=== PATIENT | female | born 1970 | race Caucasian/White ===

== ENCOUNTER 2023-08-25 12:51 | Outpatient (RCR) | payer BC, SELFPAY ==
[2023-08-25 13:00] VITALS: BP 156/80
[2023-08-25] MEDS: TYSABRI 115 MG IV (13:10)
[2023-08-25] MEDS: NSS 250 IV (13:10)
== END 2023-08-26 08:56 | disposition home or self-care (01) ==
LOC: OID 12:51
PROVIDERS: ATTENDING PHYSICIAN Psychiatry & Neurology Neurology; FAMILY PHYSICIAN Nurse Practitioner Family
DX: G35 Multiple sclerosis (principal)
CPT/HCPCS: 96365; J2323

== ENCOUNTER → 2023-09-06 14:29 | Outpatient (REF) | payer BC, SELFPAY ==
[2023-09-06 14:58] LABS: % Basophils 0.9 % (0-2); % Eosinophils 2.6 % (0-6); % Immature Granulocytes 0.7 % (0-0.5); % Lymphocytes 35.7 % (20.5-51.1); % Neutrophils 54.1 % (42.2-75.2); Absolute Basophils 0.1 10^3/uL (0-0.2); Absolute Eosinophils 0.3 10^3/uL (0-0.7); Absolute Immature Granulocytes 0.1 10^3/uL (0-0.05); Absolute Lymphocytes 4.3 10^3/uL (1.2-3.4); Absolute Monocytes 0.7 10^3/uL (0.1-0.6); Absolute Neutrophils 6.5 10^3/uL (1.4-6.5); Hemoglobin 13.6 g/dL (12.0-16.0); Mean Corp Hgb Conc. 34.9 g/dL (33.0-37.0); Mean Corpuscular Hgb 30.8 pg (27.0-31.0); Mean Corpuscular Volume 88.2 fL (81.0-99.0); Mean Platelet Volume 9.1 fL (7.4-10.4); Nucleated Red Blood Cells % 0.7 %; Platelet Count 342 10^3/uL (130-400); Red Blood Cell Count 4.42 10^6/uL (4.20-5.40); Red Cell Dist. Width 12.7 % (11.5-14.5); White Blood Cell Count 11.9 10^3/uL (4.8-10.8)
[2023-09-06 15:18] LABS: ALT (SGPT) 20 U/L (0-35); AST (SGOT) 24 U/L (14-36); Albumin 4.5 g/dl (3.5-5.0); Alkaline Phosphatase 95 U/L (38-126); Blood Urea Nitrogen 14 mg/dl (7-17); Calcium 9.7 mg/dl (8.4-10.2); Carbon Dioxide 27 mmol/L (22-30); Chloride 103 mmol/L (98-107); Glucose 113 mg/dl (70-99); Sodium 137 mmol/L (135-145); Total Bilirubin 0.6 mg/dl (0.2-1.3); eGFR > 60.00
== END ==
LOC: REG 14:29
PROVIDERS: ATTENDING PHYSICIAN Psychiatry & Neurology Neurology; FAMILY PHYSICIAN Nurse Practitioner Family
DX: G35 Multiple sclerosis (principal)
CPT/HCPCS: 36415; 80053; 85025

== ENCOUNTER 2023-10-11 12:48 | Outpatient (RCR) | payer BC, SELFPAY ==
[2023-10-11 13:00] VITALS: BP 143/62
[2023-10-11] MEDS: NSS 250 IV (13:14)
[2023-10-11] MEDS: TYSABRI 115 MG IV (13:14)
[2023-10-11 13:20] VITALS: BP 134/63
[2023-10-11 13:30] VITALS: BP 129/61
[2023-10-11 14:00] VITALS: BP 121/61
[2023-10-11 14:25] VITALS: BP 126/58
== END 2023-10-11 15:11 | disposition home or self-care (01) ==
LOC: OID 12:48
PROVIDERS: ATTENDING PHYSICIAN Psychiatry & Neurology Neurology; FAMILY PHYSICIAN Nurse Practitioner Family
DX: G35 Multiple sclerosis (principal)
CPT/HCPCS: 96365; J2323

== ENCOUNTER 2023-11-22 12:47 | Outpatient (RCR) | payer BC, SELFPAY ==
[2023-11-22] MEDS: TYSABRI 115 MG IV (13:27)
[2023-11-22] MEDS: NSS 250 IV (13:27)
[2023-11-22 13:36] VITALS: BP 130/64
== END 2023-11-23 09:18 | disposition home or self-care (01) ==
LOC: OID 12:47
PROVIDERS: ATTENDING PHYSICIAN Psychiatry & Neurology Neurology; FAMILY PHYSICIAN Nurse Practitioner Family
DX: G35 Multiple sclerosis (principal)
CPT/HCPCS: 96365; J2323

== ENCOUNTER → 2023-12-27 15:19 | Outpatient (REF) | payer BC, SELFPAY ==
[2023-12-27 16:36] LABS: % Basophils 1.2 % (0-2); % Eosinophils 3.4 % (0-6); % Immature Granulocytes 0.4 % (0-0.5); % Monocytes 6.7 % (1.7-9.3); % Neutrophils 53.3 % (42.2-75.2); Absolute Basophils 0.1 10^3/uL (0-0.2); Absolute Eosinophils 0.3 10^3/uL (0-0.7); Absolute Lymphocytes 3.3 10^3/uL (1.2-3.4); Absolute Monocytes 0.6 10^3/uL (0.1-0.6); Absolute Neutrophils 5.1 10^3/uL (1.4-6.5); Hematocrit 37.3 % (37.0-47.0); Hemoglobin 12.7 g/dL (12.0-16.0); Mean Corpuscular Hgb 31.2 pg (27.0-31.0); Mean Corpuscular Volume 91.6 fL (81.0-99.0); Mean Platelet Volume 9.9 fL (7.4-10.4); Nucleated Red Blood Cells % 0.9 %; Platelet Count 294 10^3/uL (130-400); Red Blood Cell Count 4.07 10^6/uL (4.20-5.40); Red Cell Dist. Width 13.2 % (11.5-14.5); White Blood Cell Count 9.5 10^3/uL (4.8-10.8)
[2023-12-27 17:07] LABS: ALT (SGPT) 18 U/L (0-35); AST (SGOT) 25 U/L (14-36); Albumin 4.2 g/dl (3.5-5.0); Alkaline Phosphatase 88 U/L (38-126); Blood Urea Nitrogen 13 mg/dl (7-17); Calcium 9.6 mg/dl (8.4-10.2); Carbon Dioxide 26 mmol/L (22-30); Chloride 104 mmol/L (98-107); Glucose 93 mg/dl (70-99); Potassium 4.3 mmol/L (3.5-5.1); Sodium 139 mmol/L (135-145); Total Bilirubin 0.5 mg/dl (0.2-1.3); Total Protein 6.3 g/dl (6.3-8.2); eGFR > 60.00
== END ==
LOC: REG 15:19
PROVIDERS: ATTENDING PHYSICIAN Psychiatry & Neurology Neurology; FAMILY PHYSICIAN Nurse Practitioner Family
DX: G35 Multiple sclerosis (principal)
CPT/HCPCS: 36415; 80053; 83516; 85025

== ENCOUNTER 2024-01-03 12:50 | Outpatient (RCR) | payer BC, SELFPAY ==
[2024-01-03 13:02] VITALS: BP 113/57
[2024-01-03] MEDS: TYSABRI 115 MG IV (13:15)
[2024-01-03] MEDS: NSS 250 IV (13:15)
[2024-01-03 14:50] VITALS: BP 116/61
== END 2024-01-04 09:54 | disposition home or self-care (01) ==
LOC: OID 12:50
PROVIDERS: ATTENDING PHYSICIAN Psychiatry & Neurology Neurology; FAMILY PHYSICIAN Nurse Practitioner Family
DX: G35 Multiple sclerosis (principal)
CPT/HCPCS: 96361; 96365; J2323

== ENCOUNTER → 2024-01-21 15:57 | Outpatient (REF) | payer BC, SELFPAY | LOC: RAD 15:57 | PROVIDERS: ATTENDING PHYSICIAN Obstetrics & Gynecology; FAMILY PHYSICIAN Nurse Practitioner Family | DX: N39.46 Mixed incontinence (principal); R39.15 Urgency of urination | CPT/HCPCS: 76770 ==

== ENCOUNTER → 2024-02-03 06:45 | Outpatient (REF) | payer BC, SELFPAY ==
[2024-02-03 07:42] LABS: % Immature Granulocytes 0.3 % (0-0.5); % Lymphocytes 36.5 % (20.5-51.1); % Monocytes 8.2 % (1.7-9.3); Absolute Basophils 0.1 10^3/uL (0-0.2); Absolute Eosinophils 0.3 10^3/uL (0-0.7); Absolute Lymphocytes 3.5 10^3/uL (1.2-3.4); Absolute Monocytes 0.8 10^3/uL (0.1-0.6); Absolute Neutrophils 4.8 10^3/uL (1.4-6.5); Hematocrit 36.8 % (37.0-47.0); Hemoglobin 12.9 g/dL (12.0-16.0); Mean Corp Hgb Conc. 35.1 g/dL (33.0-37.0); Mean Corpuscular Hgb 31.4 pg (27.0-31.0); Mean Corpuscular Volume 89.5 fL (81.0-99.0); Mean Platelet Volume 9.4 fL (7.4-10.4); Nucleated Red Blood Cells % 1.2 %; Platelet Count 243 10^3/uL (130-400); Red Blood Cell Count 4.11 10^6/uL (4.20-5.40); Red Cell Dist. Width 13.2 % (11.5-14.5); White Blood Cell Count 9.5 10^3/uL (4.8-10.8)
[2024-02-03 08:27] LABS: ALT (SGPT) 17 U/L (0-35); AST (SGOT) 22 U/L (14-36); Albumin 4.3 g/dl (3.5-5.0); Alkaline Phosphatase 86 U/L (38-126); Blood Urea Nitrogen 17 mg/dl (7-17); Calcium 9.7 mg/dl (8.4-10.2); Carbon Dioxide 28 mmol/L (22-30); Chloride 105 mmol/L (98-107); Glucose 89 mg/dl (70-99); HDL Cholesterol 41 mg/dl; LDL Cholesterol, Calculated 62 mg/dl; Potassium 4.3 mmol/L (3.5-5.1); Sodium 139 mmol/L (135-145); Total Bilirubin 0.6 mg/dl (0.2-1.3); Total Cholesterol 153 mg/dl (50-199); Total Protein 6.3 g/dl (6.3-8.2); Triglyceride 254 mg/dl (10-149); Very Low Density Lipoprotein 50 mg/dl (0-30); eGFR > 60.00
== END ==
LOC: REG 06:45
PROVIDERS: ATTENDING PHYSICIAN Nurse Practitioner Family
DX: Z00.00 Encounter for general adult medical examination without abnormal findings (principal)
CPT/HCPCS: 36415; 80053; 80061; 84443; 85025

== ENCOUNTER 2024-02-14 12:57 | Outpatient (RCR) | payer BC, SELFPAY ==
[2024-02-14 13:00] VITALS: BP 144/72
[2024-02-14] MEDS: NSS 250 IV (13:22)
[2024-02-14] MEDS: TYSABRI 115 MG IV (13:22)
[2024-02-14 14:47] VITALS: BP 136/71
== END 2024-02-16 23:59 | disposition home or self-care (01) ==
LOC: OID 12:57
PROVIDERS: ATTENDING PHYSICIAN Psychiatry & Neurology Neurology; FAMILY PHYSICIAN Nurse Practitioner Family
DX: G35 Multiple sclerosis (principal)
CPT/HCPCS: 96361; 96365; J2323

== ENCOUNTER 2024-03-27 12:55 | Outpatient (RCR) | payer BC, SELFPAY ==
[2024-03-27 13:05] VITALS: BP 126/56
[2024-03-27] MEDS: TYSABRI 115 MG IV (13:15)
[2024-03-27] MEDS: NSS 250 IV (13:16)
[2024-03-27 14:20] VITALS: BP 113/59
== END 2024-03-28 09:53 | disposition home or self-care (01) ==
LOC: OID 12:55
PROVIDERS: ATTENDING PHYSICIAN Psychiatry & Neurology Neurology; FAMILY PHYSICIAN Nurse Practitioner Family
DX: G35 Multiple sclerosis (principal)
CPT/HCPCS: 96365; J2323

== ENCOUNTER 2024-05-08 12:47 | Outpatient (RCR) | payer BC, SELFPAY ==
[2024-05-08] MEDS: NSS 250 IV (13:32)
[2024-05-08] MEDS: TYSABRI 115 MG IV (13:33)
[2024-05-08 13:39] VITALS: BP 128/68
== END 2024-05-18 23:59 | disposition home or self-care (01) ==
LOC: OID 12:47
PROVIDERS: ATTENDING PHYSICIAN Psychiatry & Neurology Neurology; FAMILY PHYSICIAN Nurse Practitioner Family
DX: G35 Multiple sclerosis (principal); H46.9 Unspecified optic neuritis
CPT/HCPCS: 96361; 96365; J2323

== ENCOUNTER → 2024-05-22 16:00 | Outpatient (REF) | payer BC, SELFPAY | LOC: WDC 16:00 | PROVIDERS: ATTENDING PHYSICIAN Nurse Practitioner Family | DX: Z12.39 Encounter for other screening for malignant neoplasm of breast (principal); Z12.31 Encounter for screening mammogram for malignant neoplasm of breast | CPT/HCPCS: 77063; 77067 ==

== ENCOUNTER → 2024-06-05 17:30 | Outpatient (REF) | payer BC, SELFPAY | LOC: MRI 3T 17:30 | PROVIDERS: ATTENDING PHYSICIAN Psychiatry & Neurology Neurology; FAMILY PHYSICIAN Nurse Practitioner Family | DX: G35 Multiple sclerosis (principal) | CPT/HCPCS: 70553; 72156; A9575 ==

== ENCOUNTER → 2024-06-07 17:23 | Outpatient (REF) | payer BC, SELFPAY | LOC: MRI 3T 17:23 | PROVIDERS: ATTENDING PHYSICIAN Psychiatry & Neurology Neurology; FAMILY PHYSICIAN Nurse Practitioner Family | DX: G35 Multiple sclerosis (principal); H46.9 Unspecified optic neuritis | CPT/HCPCS: 72157; A9575 ==

== ENCOUNTER → 2024-06-16 11:15 | Outpatient (REF) | payer BC, SELFPAY | LOC: REG 11:15 | PROVIDERS: ATTENDING PHYSICIAN Nurse Practitioner Family | DX: M79.605 Pain in left leg (principal) | CPT/HCPCS: 73564 ==

== ENCOUNTER 2024-06-19 12:49 | Outpatient (RCR) | payer BC, SELFPAY ==
[2024-06-19 13:10] VITALS: BP 126/84
[2024-06-19] MEDS: TYSABRI 115 MG IV (13:19)
[2024-06-19] MEDS: NSS 250 IV (13:19)
[2024-06-19 14:46] VITALS: BP 122/61
== END 2024-06-20 09:14 | disposition home or self-care (01) ==
LOC: OID 12:49
PROVIDERS: ATTENDING PHYSICIAN Psychiatry & Neurology Neurology; FAMILY PHYSICIAN Nurse Practitioner Family
DX: G35 Multiple sclerosis (principal)
CPT/HCPCS: 96365; J2323

== ENCOUNTER 2024-07-31 12:56 | Outpatient (RCR) | payer BC, SELFPAY ==
[2024-07-31] MEDS: TYSABRI 115 MG IV (13:17)
[2024-07-31] MEDS: NSS 250 IV (13:18)
[2024-07-31 13:40] VITALS: BP 140/75
[2024-07-31 15:20] VITALS: BP 132/65
== END 2024-08-01 11:42 | disposition home or self-care (01) ==
LOC: OID 12:56
PROVIDERS: ATTENDING PHYSICIAN Psychiatry & Neurology Neurology; FAMILY PHYSICIAN Nurse Practitioner Family
DX: G35 Multiple sclerosis (principal); H46.9 Unspecified optic neuritis
CPT/HCPCS: 96361; 96365; J2323

== ENCOUNTER → 2024-08-08 10:41 | Outpatient (REF) | payer BC, SELFPAY | LOC: PAVMRI 10:41 | PROVIDERS: ATTENDING PHYSICIAN Orthopaedic Surgery; FAMILY PHYSICIAN Nurse Practitioner Family | DX: M25.562 Pain in left knee (principal) | CPT/HCPCS: 73721 ==

== ENCOUNTER → 2024-08-16 13:58 | Outpatient (REF) | payer BC, SELFPAY ==
[2024-08-16 16:36] LABS: Urine Albumin Negative (Neg - Trace); Urine Bilirubin Negative (Negative); Urine Character Clear (Clear); Urine Color Yellow; Urine Glucose Negative (Negative); Urine Ketone Negative (Negative); Urine Leukocyte 2+ (Negative); Urine Nitrite Negative (Negative); Urine Occult Blood Negative (Negative); Urine Specific Gravity 1.015 (<1.030); Urine Urobilinogen Negative (Neg - 1+)
[2024-08-16 16:47] LABS: Urine Bacteria Few (Negative); Urine Mucus Moderate; Urine Red Blood Cell 0-2 /HPF (0-2)
== END ==
LOC: CLAB 13:58
PROVIDERS: ATTENDING PHYSICIAN Obstetrics & Gynecology
DX: R39.9 Unspecified symptoms and signs involving the genitourinary system (principal)
CPT/HCPCS: 81003; 81015; 87086

== ENCOUNTER 2024-09-11 12:49 | Outpatient (RCR) | payer BC, SELFPAY ==
[2024-09-11] MEDS: NSS 250 IV (13:21)
[2024-09-11] MEDS: TYSABRI 115 MG IV (13:21)
[2024-09-11 13:25] VITALS: BP 136/61
[2024-09-11 15:20] VITALS: BP 120/61
== END 2024-09-12 13:36 | disposition home or self-care (01) ==
LOC: OID 12:49
PROVIDERS: ATTENDING PHYSICIAN Psychiatry & Neurology Neurology; FAMILY PHYSICIAN Nurse Practitioner Family
DX: G35 Multiple sclerosis (principal)
CPT/HCPCS: 96361; 96365; J2323

== ENCOUNTER 2024-10-10 06:09 | Outpatient (RCR) | payer BC, SELFPAY | END 2024-10-10 23:59 | disposition home or self-care (01) | LOC: RPT 06:09 | PROVIDERS: ATTENDING PHYSICIAN Student in an Organized Health Care Education/Training Program; FAMILY PHYSICIAN Nurse Practitioner Family | DX: M17.12 Unilateral primary osteoarthritis, left knee (principal); S83.207D Unspecified tear of unspecified meniscus, current injury, left knee, subsequent encounter; Z73.6 Limitation of activities due to disability; W18.39XD Other fall on same level, subsequent encounter; G35 Multiple sclerosis; R26.89 Other abnormalities of gait and mobility | CPT/HCPCS: 97110; 97162 ==

== ENCOUNTER 2024-10-23 12:50 | Outpatient (RCR) | payer BC, SELFPAY ==
[2024-10-23 13:13] VITALS: BP 131/77
[2024-10-23] MEDS: NSS 250 IV (13:22)
[2024-10-23] MEDS: TYSABRI 115 MG IV (13:26)
[2024-10-23 14:36] VITALS: BP 119/68
== END 2024-10-24 09:44 | disposition home or self-care (01) ==
LOC: OID 12:50
PROVIDERS: ATTENDING PHYSICIAN Psychiatry & Neurology Neurology; FAMILY PHYSICIAN Nurse Practitioner Family
DX: G35 Multiple sclerosis (principal)
CPT/HCPCS: 96361; 96365; J2323

== ENCOUNTER 2024-11-07 16:30 | Outpatient (RCR) | payer BC, SELFPAY | END 2024-11-07 23:59 | disposition home or self-care (01) | LOC: RPT 16:30 | PROVIDERS: ATTENDING PHYSICIAN Student in an Organized Health Care Education/Training Program; FAMILY PHYSICIAN Nurse Practitioner Family | DX: M17.12 Unilateral primary osteoarthritis, left knee (principal); S83.207D Unspecified tear of unspecified meniscus, current injury, left knee, subsequent encounter; Z73.6 Limitation of activities due to disability; W18.39XD Other fall on same level, subsequent encounter; G35 Multiple sclerosis; R26.89 Other abnormalities of gait and mobility | CPT/HCPCS: 97110; 97140 ==

== ENCOUNTER → 2024-11-24 18:28 | Outpatient (REF) | payer BC, SELFPAY | LOC: MRI 3T 18:28 | PROVIDERS: ATTENDING PHYSICIAN Nurse Practitioner Adult Health; FAMILY PHYSICIAN Nurse Practitioner Family | DX: G35 Multiple sclerosis (principal); H46.9 Unspecified optic neuritis | CPT/HCPCS: 70553; A9575 ==

== ENCOUNTER 2024-12-04 12:49 | Outpatient (RCR) | payer BC, SELFPAY ==
[2024-12-04] MEDS: TYSABRI 115 MG IV (13:27)
[2024-12-04] MEDS: NSS 250 IV (13:27)
[2024-12-04 13:35] VITALS: BP 141/76
== END 2024-12-05 08:52 | disposition home or self-care (01) ==
LOC: OID 12:49
PROVIDERS: ATTENDING PHYSICIAN Psychiatry & Neurology Neurology; FAMILY PHYSICIAN Nurse Practitioner Family
DX: G35 Multiple sclerosis (principal)
CPT/HCPCS: 96361; 96365; J2323

== ENCOUNTER 2024-12-06 06:26 | Day surgery (SDC) | payer BC, SELFPAY ==
[2024-11-27 13:43] VITALS: BMI 37.2
[2024-12-06] VITALS (9 sets, daily range): BP systolic 119–140; BP diastolic 65–86; BMI 37.2
[2024-12-06] MEDS: NORMOSOL-R/PLASMALYTE-A 1000 IV (11:15)
--- NOTE | 2024-12-06 13:11 | W.IMMPOSTOP ---
Surgical Immed Post Op Note
-
Primary Surgeon: Josesito Salinas MD
Assisting Surgeon:
Pre-op Diagnosis: left knee medial and lateral meniscal tears, osteoarthritis
Post-op Diagnosis: left knee medial and lateral meniscal tears, osteoarthritis
Procedure Performed: arthroscopic left knee partial medial and lateral meniscectomies, chondroplasty
Anesthesia Type: general
Specimen / Cultures: none
Estimated Blood Loss: 2mL
Complications: none apparent
Operative Findings: grade 2 chondrosis medial femoral condyle
Tourniquet time: 27 minutes at 250mm Hg
Operative dictation #: [id number]
[2024-12-06] MEDS: DILAUDID 0.25 MG IV ×2 (13:17→13:39)
== END 2024-12-06 15:10 | disposition home or self-care (01) ==
LOC: SDS 06:26
PROVIDERS: ATTENDING PHYSICIAN Student in an Organized Health Care Education/Training Program; FAMILY PHYSICIAN Nurse Practitioner Family
DX: S83.242A Other tear of medial meniscus, current injury, left knee, initial encounter (principal); S83.282A Other tear of lateral meniscus, current injury, left knee, initial encounter; X58.XXXA Exposure to other specified factors, initial encounter; M17.12 Unilateral primary osteoarthritis, left knee; G35 Multiple sclerosis
CPT/HCPCS: 29880; 36415; 93005

== ENCOUNTER 2024-12-13 05:56 | Outpatient (RCR) | payer BC, SELFPAY | END 2024-12-13 23:59 | disposition home or self-care (01) | LOC: RPT 05:56 | PROVIDERS: ATTENDING PHYSICIAN Student in an Organized Health Care Education/Training Program; FAMILY PHYSICIAN Nurse Practitioner Family | DX: S83.207D Unspecified tear of unspecified meniscus, current injury, left knee, subsequent encounter (principal); Z73.6 Limitation of activities due to disability | CPT/HCPCS: 97110; 97161 ==

== ENCOUNTER 2025-01-04 14:49 | Outpatient (RCR) | payer BC, SELFPAY | END 2025-01-04 23:59 | disposition home or self-care (01) | LOC: RPT 14:49 | PROVIDERS: ATTENDING PHYSICIAN Student in an Organized Health Care Education/Training Program; FAMILY PHYSICIAN Nurse Practitioner Family | DX: S83.207D Unspecified tear of unspecified meniscus, current injury, left knee, subsequent encounter (principal); Z73.6 Limitation of activities due to disability | CPT/HCPCS: 97010; 97110; 97112; 97140; 97530 ==

== ENCOUNTER 2025-01-15 12:54 | Outpatient (RCR) | payer BC, SELFPAY ==
[2025-01-15 12:55] VITALS: BP 132/81
[2025-01-15] MEDS: NSS 250 IV (13:12)
[2025-01-15] MEDS: TYSABRI 115 MG IV (13:13)
[2025-01-15 13:30] VITALS: BP 118/70
[2025-01-15 14:00] VITALS: BP 116/66
[2025-01-15 14:30] VITALS: BP 117/56
== END 2025-01-15 23:59 | disposition home or self-care (01) ==
LOC: OID 12:54
PROVIDERS: ATTENDING PHYSICIAN Psychiatry & Neurology Neurology; FAMILY PHYSICIAN Nurse Practitioner Family
DX: G35 Multiple sclerosis (principal)
CPT/HCPCS: 96365; J2323

== ENCOUNTER 2025-02-26 12:47 | Outpatient (RCR) | payer BC, SELFPAY ==
[2025-02-26 13:11] VITALS: BP 130/57
[2025-02-26] MEDS: NSS 250 IV (13:31)
[2025-02-26] MEDS: TYSABRI 115 MG IV (13:34)
[2025-02-26 15:45] VITALS: BP 117/56
== END 2025-02-27 08:48 | disposition home or self-care (01) ==
LOC: OID 12:47
PROVIDERS: ATTENDING PHYSICIAN Psychiatry & Neurology Neurology; FAMILY PHYSICIAN Internal Medicine
DX: G35 Multiple sclerosis (principal); H46.9 Unspecified optic neuritis
CPT/HCPCS: 96361; 96365; J2323

== ENCOUNTER 2025-04-06 08:28 | Outpatient (RCR) | payer BC, SELFPAY ==
[2025-04-06] MEDS: NSS 250 IV (08:57)
[2025-04-06] MEDS: TYSABRI 115 MG IV (08:58)
[2025-04-06 09:12] VITALS: BP 138/66
[2025-04-06 10:35] VITALS: BP 121/74
== END 2025-04-06 14:45 | disposition home or self-care (01) ==
LOC: OID 08:28
PROVIDERS: ATTENDING PHYSICIAN Psychiatry & Neurology Neurology; FAMILY PHYSICIAN Internal Medicine
DX: G35 Multiple sclerosis (principal); H46.9 Unspecified optic neuritis
CPT/HCPCS: 96361; 96365; J2323

== ENCOUNTER → 2025-04-26 07:09 | Outpatient (REF) | payer BC, SELFPAY | LOC: MRI 3T 07:09 | PROVIDERS: ATTENDING PHYSICIAN Nurse Practitioner Adult Health; FAMILY PHYSICIAN Nurse Practitioner Family | DX: G35.D Multiple sclerosis, unspecified (principal); H46.9 Unspecified optic neuritis; R90.89 Other abnormal findings on diagnostic imaging of central nervous system | CPT/HCPCS: 72157; A9575 ==

== ENCOUNTER 2025-05-21 12:48 | Outpatient (RCR) | payer BC, SELFPAY ==
[2025-05-21] MEDS: NSS 250 IV (13:23)
[2025-05-21] MEDS: TYSABRI 115 MG IV (13:24)
[2025-05-21 13:26] LABS: Hematocrit 39.0 % (37.0-47.0); Hemoglobin 13.9 g/dL (12.0-16.0); Mean Corp Hgb Conc. 35.6 g/dL (33.0-37.0); Mean Corpuscular Volume 87.1 fL (81.0-99.0); Platelet Count 288 10^3/uL (130-400); Red Cell Dist. Width 12.8 % (11.5-14.5)
[2025-05-21 13:31] VITALS: BP 135/74
[2025-05-21 14:14] LABS: ALT (SGPT) 16 U/L (0-35); AST (SGOT) 19 U/L (14-36); Albumin 4.2 g/dl (3.5-5.0); Alkaline Phosphatase 97 U/L (38-126); Blood Urea Nitrogen 13 mg/dl (7-17); Calcium 9.6 mg/dl (8.4-10.2); Carbon Dioxide 25 mmol/L (22-30); Chloride 104 mmol/L (98-107); Glucose 94 mg/dl (70-99); Potassium 4.1 mmol/L (3.5-5.1); Sodium 133 mmol/L (135-145); Total Protein 6.6 g/dl (6.3-8.2); eGFR > 60.00
== END 2025-05-22 10:17 | disposition home or self-care (01) ==
LOC: OID 12:48
PROVIDERS: ATTENDING PHYSICIAN Psychiatry & Neurology Neurology; FAMILY PHYSICIAN Internal Medicine
DX: G35.B0 Primary progressive multiple sclerosis, unspecified (principal); H46.9 Unspecified optic neuritis
CPT/HCPCS: 36415; 80053; 82248; 85025; 96361; 96365; J2323

== ENCOUNTER → 2025-05-31 06:50 | Outpatient (REF) | payer BC, SELFPAY ==
[2025-05-31 07:57] LABS: HDL Cholesterol 48 mg/dl; LDL Cholesterol, Calculated 85 mg/dl; Very Low Density Lipoprotein 35 mg/dl (0-30)
== END ==
LOC: REG 06:50
PROVIDERS: ATTENDING PHYSICIAN Family Medicine
DX: E78.2 Mixed hyperlipidemia (principal); Z00.00 Encounter for general adult medical examination without abnormal findings
CPT/HCPCS: 36415; 80061

== ENCOUNTER 2025-07-02 12:48 | Outpatient (RCR) | payer BC, SELFPAY ==
[2025-07-02] MEDS: NSS 250 IV (13:22)
[2025-07-02] MEDS: TYSABRI 115 MG IV (13:24)
[2025-07-02 13:45] VITALS: BP 131/75
== END 2025-07-03 10:41 | disposition home or self-care (01) ==
LOC: OID 12:48
PROVIDERS: ATTENDING PHYSICIAN Psychiatry & Neurology Neurology; FAMILY PHYSICIAN Internal Medicine
DX: G35.B0 Primary progressive multiple sclerosis, unspecified (principal); H46.9 Unspecified optic neuritis
CPT/HCPCS: 96361; 96365; J2323